=== PATIENT | female | born 1960 | race Caucasian/White ===

== ENCOUNTER 2018-04-25 01:46 | Emergency (ER) | payer MEDICAID, OTHER ==
[~2018-04-25] VITALS: Ht 160 cm; Wt 54.9 kg
[2018-04-25 01:58] VITALS: BP 123/59
== END 2018-04-25 03:52 | disposition home or self-care (01) ==
LOC: ER 01:51
DX: M79.604 Pain in right leg (principal); Z90.710 Acquired absence of both cervix and uterus; Z88.0 Allergy status to penicillin; Z88.2 Allergy status to sulfonamides; Z88.8 Allergy status to other drugs, medicaments and biological substances; Z91.018 Allergy to other foods
CPT/HCPCS: 73630-TC; 93971-TC; A4606; Z7610

== ENCOUNTER 2021-01-03 17:05 | Emergency (ER) | payer OTHER ==
[~2021-01-03] VITALS: Ht 160 cm; Wt 59.0 kg
--- NOTE | 2021-01-03 17:20 | NUR ---
L KNEE AND L ANKLE PAIN AND SWELLINFG X 1 MONTH, WORST X 1 WEEK. PATIENT A/OX4, BREATHING EVEN AND UNLABORED, NO SOB NTOED.
--- NOTE | 2021-01-03 17:27 | NUR ---
MOSES [facility]IL[facility] AT BEDSIDE FOR EVAL.
[2021-01-03] MEDS ORDERED: ACET-2605 PO (18:30)
[2021-01-03] MEDS ORDERED: TRAM50TA2 PO (18:30)
--- NOTE | 2021-01-03 18:41 | NUR ---
Patient a/ox4, breathing even and unlabored, no sob noted, needs attended. Patient discharged to home in stable condition. Written and verbal after care instructions given. Patient verbalizes understanding of instruction.
[2021-01-03 18:43] VITALS: BP 115/70
== END 2021-01-03 18:44 | disposition home or self-care (01) ==
LOC: ER 17:14
DX: M25.562 Pain in left knee (principal); M25.572 Pain in left ankle and joints of left foot; G40.909 Epilepsy, unspecified, not intractable, without status epilepticus; Z90.710 Acquired absence of both cervix and uterus; Z88.0 Allergy status to penicillin; Z88.2 Allergy status to sulfonamides; Z88.6 Allergy status to analgesic agent; Z91.018 Allergy to other foods; Z88.8 Allergy status to other drugs, medicaments and biological substances; Z79.899 Other long term (current) drug therapy
CPT/HCPCS: 73564-TC; 73610-TC; 93971-TC

== ENCOUNTER 2021-06-21 12:20 | Emergency (ER) | payer MEDICAID, OTHER ==
[~2021-06-21] VITALS: Ht 160 cm; Wt 59.0 kg
[~2021-06-21 12:20] MED LIST: ACET-2605 PO; TRAM50TA2 PO
[2021-06-21 12:28] VITALS: BP 125/70
--- NOTE | 2021-06-21 12:35 | NUR ---
to chair 1, c/o "was at the gym earlier slipped hurt arms > Left wrist", a&ox4, breathing even and unlabored
--- NOTE | 2021-06-21 13:10 | NUR ---
SENT HOME WITH LEFT THUMB SPICA
== END 2021-06-21 13:14 | disposition home or self-care (01) ==
LOC: ER 12:37
DX: S63.592A Other specified sprain of left wrist, initial encounter (principal); Z88.6 Allergy status to analgesic agent; Z88.0 Allergy status to penicillin; Z88.2 Allergy status to sulfonamides; Z91.018 Allergy to other foods; Z79.899 Other long term (current) drug therapy; Z90.710 Acquired absence of both cervix and uterus; W01.0XXA Fall on same level from slipping, tripping and stumbling without subsequent striking against object, initial encounter; Y93.89 Activity, other specified; Y92.89 Other specified places as the place of occurrence of the external cause; Y99.8 Other external cause status
CPT/HCPCS: 73110; 73130-TC

== ENCOUNTER 2022-06-26 10:46 | Emergency (ER) | payer MEDICAID ==
[~2022-06-26] VITALS: Ht 160 cm; Wt 54.4 kg
--- NOTE | 2022-06-26 11:24 | NUR ---
PATIENT ARRIVED FROM HOME C/O HEADACHE 5/10 PAIN. PATIENT FEELS A "FLUSHING FEELING" WHEN HEADAHCE STARTS AND FEELS SLIGHT DIZINESS. VITAL SIGNS ARE WNL. CURRENTLY RESTING IN BED 1
--- NOTE | 2022-06-26 11:26 | NUR ---
IV ACCESS STARTED RAC 20 GAUGE
--- NOTE | 2022-06-26 11:28 | NUR ---
PT LEFT TO UNDERGO CT SCAN
[2022-06-26] MEDS ORDERED: SUMATRIPTAN SUCCINATE 6 MG/0.5 ML VIAL SQ ONE ×2 (11:30→11:35)
[2022-06-26] MEDS ORDERED: METOCLOPRAMIDE HCL 10 MG/2 ML VIAL IV ONE (11:30)
[2022-06-26] MEDS ORDERED: KETOROLAC TROMETHAMINE INJ 30 MG/ML VIAL IV ONE (11:30)
[2022-06-26] MEDS ORDERED: IV NS 0.9% 1,000 ML BAG IV ONE (11:30)
[2022-06-26] MEDS ORDERED: METOCLOPRAMIDE HCL 10 MG/2 ML VIAL ONE (11:35)
[2022-06-26] MEDS ORDERED: KETOROLAC TROMETHAMINE 15 MG/ML VIAL ONE (11:35)
--- NOTE | 2022-06-26 11:42 | NUR ---
PT RETURNED FROM CT
[2022-06-26] MEDS ORDERED: METO-295 PO (13:06)
[2022-06-26] MEDS ORDERED: SUMA100T PO (13:06)
[2022-06-26 13:12] VITALS: BP 101/64
--- NOTE | 2022-06-26 13:12 | NUR ---
Patient discharged to home in stable condition. Written and verbal after care instructions given. Patient verbalizes understanding of instruction.IV removed. Catheter intact and site benign. Pressure and 4x4 applied to site. No bleeding noted.
== END 2022-06-26 13:12 | disposition home or self-care (01) ==
LOC: ER 10:54
DX: G43.909 Migraine, unspecified, not intractable, without status migrainosus (principal); Z86.69 Personal history of other diseases of the nervous system and sense organs; Z88.0 Allergy status to penicillin; Z88.2 Allergy status to sulfonamides; Z91.018 Allergy to other foods; Z88.8 Allergy status to other drugs, medicaments and biological substances; Z79.899 Other long term (current) drug therapy
CPT/HCPCS: 99284; 96374; 70450; 96361; 96375; 96372; J3030; J2765; J7030; J1885